=== PATIENT | female | born 1990 | race Two or more races ===

== ENCOUNTER 2021-11-15 06:06 | Emergency (ER) | payer MEDICAID ==
[~2021-11-15] VITALS: Ht 162.6 cm; Wt 100.0 kg
[2021-11-15 08:57] LABS: BASOPHILS # (AUTO) 0.1 X10'3 (0-0.2); BASOPHILS % (AUTO) 1.1 % (0-1); EOSINOPHILS # (AUTO) 0.1 X10'3 (0-0.9); EOSINOPHILS % (AUTO) 1.6 % (0-6); HEMATOCRIT 40.1 % (35.0-45.0); HEMOGLOBIN 13.8 g/dl (12.0-16.0); LYMPHOCYTES # (AUTO) 2.6 X10'3 (1.1-4.8); LYMPHOCYTES % (AUTO) 44.2 % (21-51); MEAN CORPUSCULAR HEMOGLOBIN 27.8 PG (27.0-31.0); MEAN CORPUSCULAR HGB CONC 34.3 g/dL (33.0-36.5); MEAN PLATELET VOLUME 9.2 FL (7.4-10.4); MONOCYTES # (AUTO) 0.5 X10'3 (0-0.9); MONOCYTES % (AUTO) 9.3 % (2-12); NEUTROPHILS # (AUTO) 2.6 X10'3 (1.8-7.7); NEUTROPHILS % (AUTO) 43.8 % (42-75); PLATELET COUNT 219 X10'3 (140-440); RED BLOOD COUNT 4.95 X10'6 (4.20-5.60); WHITE BLOOD COUNT 5.9 X10'3 (4.5-11.0)
[2021-11-15 09:09] LABS: D-DIMER 1.05 MG/L FEU (0-0.50)
[2021-11-15 09:13] LABS: ALANINE AMINOTRANSFERASE 45 U/L (12-78); ALBUMIN 3.2 G/DL (3.4-5.0); ALBUMIN/GLOBULIN RATIO 0.8 (1.1-1.5); ALKALINE PHOSPHATASE 131 IU/L (46-116); ANION GAP 10 (8-16); ASPARTATE AMINO TRANSFERASE 32 U/L (10-37); BILIRUBIN,TOTAL 0.2 MG/DL (0.1-1.0); BLOOD UREA NITROGEN 13 MG/DL (7-18); BUN/CREATININE RATIO 15.9 (6.6-38.0); CHLORIDE 108 MMOL/L (99-107); CREATININE 0.82 MG/DL (0.40-0.90); GLUCOSE 95 MG/DL (70-104); POTASSIUM 3.9 MMOL/L (3.5-5.1); SODIUM 144 MMOL/L (135-145); TOTAL CARBON DIOXIDE 26.5 MMOL/L (24-32); TOTAL PROTEIN 7.2 G/DL (6.4-8.2); eGFR 82 ML/MIN
[2021-11-15 09:16] LABS: C-REACTIVE PROTEIN 1.28 MG/DL (0.0-0.5)
[2021-11-15] MEDS ORDERED: dexamethasone 4mg tablet PO ONE (09:45)
[2021-11-15] MEDS ORDERED: iohexol 350MG/ML 100ml bottle IV ONE (10:47)
[2021-11-15 11:23] LABS: HCG SERUM QL NEGATIVE
[2021-11-15 13:29] VITALS: BP 132/81
== END 2021-11-15 13:37 | disposition home or self-care (01) ==
LOC: ER 06:07
DX: U07.1 COVID-19 (principal); Z98.890 Other specified postprocedural states
CPT/HCPCS: 36415; 71046; 71275; 80053; 84145; 84484; 84703; 85025; 85379; 86140; 87635; 93005; 99285; C9803; J3490; Q9967

== ENCOUNTER 2023-03-05 17:56 | Emergency (ER) | payer MEDICAID ==
[~2023-03-05] VITALS: Ht 162.6 cm; Wt 106.9 kg
[2023-03-05] MEDS ORDERED: ONDA4TAB12 PO (19:42)
[2023-03-05] MEDS ORDERED: ALBU8HFA PO (19:42)
[2023-03-05] MEDS ORDERED: ondansetron 4mg rapidly disintigrating tab PO ONE (19:45)
[2023-03-05 20:06] VITALS: BP 156/98; PULSE 104; RESP 18; TEMP 99.5; O2SAT 99
== END 2023-03-05 20:18 | disposition home or self-care (01) ==
LOC: ER 17:57
DX: U07.1 COVID-19 (principal); I10 Essential (primary) hypertension; Z79.899 Other long term (current) drug therapy; Z88.1 Allergy status to other antibiotic agents
CPT/HCPCS: 99283